=== PATIENT | male | born 1950 | race Caucasian/White ===

== ENCOUNTER → 2017-11-13 | Day surgery (SDC) | payer OTHER, BC ==
--- NOTE | 2017-11-12 14:59 | RAD REPORT ---
EXAM DESCRIPTION: Bernardino Galindo (2 Views)11/12/2017 2:53 pm CLINICAL HISTORY: Hypertension/preop COMPARISON: 2016 FINDINGS: The lungs appear clear of acute infiltrate. The heart is normal size IMPRESSION: No acute abnormalities displayed
--- NOTE | 2017-11-12 15:23 | EKG ---
Test Date: 2017-11-12 Test Time: 14:44:57 Warehouse Order Picker: LEV MEASUREMENT RESULTS: Intervals: Rate: 58 PA: 144 QRSD: 104 QT: 448 QTc: 439 [place]: P: 50 PA: 144 QRS: 47 T: 31 INTERPRETIVE STATEMENTS: Sinus bradycardia Abnormal ECG Compared to ECG 05/16/2013 10:56:46 Left ventricular hypertrophy no longer present Electronically Signed On 11-12-17 15:22:56 CDT by Angel Kennedy
[2017-11-12 16:08] LABS: Absolute Lymphocytes (CBC) 1.5 K/uL (0.7-4.9); Absolute Monocytes 0.5 K/uL (0.1-1.3); Absolute Neutrophil 3.2 K/uL (1.8-8.0); Basophils % 0.7 % (0-1.3); Eosinophils % 4.1 % (0-4.4); Hematocrit 42.7 % (39.6-49.0); Lymphocytes % 27.3 % (15.3-44.8); MCH 30.7 pg (27.0-35.0); MCV 88.4 fL (80-100); MPV 8.9 fL (7.6-11.3); Monocytes % 8.8 % (3.3-12.3); RBC Red Blood Cell Count 4.83 M/uL (4.33-5.43)
[2017-11-12 16:14] LABS: Protime INR 1.01
[2017-11-12 16:55] LABS: Potassium 3.8 mEq/L (3.6-5.0)
[~2017-11-13] MED LIST: FENTANYL CITR 100 MCG/2 ML ONE; HEPA 1000U/500MLS 1,000 UNIT/500 ML BAG IV ONE; LIDOCAINE 1% 20 ML MDV ONE; MIDAZOLAM HCL 2 MG/2 ML INJ ONE; NA CHLORIDE 0.9% 500 ML ONE
--- NOTE | 2017-11-14 01:03 | OP ---
Surgeon: Eric Joaquin MD Senior Examiner: Judy Lance. Procedure: The patient was brought in as an outpatient for an abdominal angiogram with runoff and bi lateral selective carotid angiography. Indication For The Procedure: CVD and PVD. Mr. Mansfield is a 67-year-old white male, very well known t o me. He has had a history of stents in his bilateral SFA, stents in his bilateral carotids. He com es in with claudication, abnormal arterial Doppler, and abnormal carotid Doppler. Description Of Procedure: He was prepped and draped in the routine sterile fashion, given 2 mg of Ve rsed for IV sedation. A 6-Kinyarwanda sheath was introduced in the right common femoral artery. Abdomina l angiogram with runoff was done using a pigtail, which showed a 40% stenosis in the right renal, dif fuse plaquing in the SFA bilaterally with patent stents bilaterally, diffuse distal disease below the knee, and small vessels. We will plan medical therapy for the peripheral vascular disease. He also had a right Claire catheter used to do the right carotid angiogram and left carotid angiogram. His ECAs were normal bilaterally. The common carotids were normal bilaterally. He had a 50-60% in-sten t restenosis in the right internal carotid artery stent and had about an 85-90% stenosis in the left internal carotid stent. We will get surgical consultation for possible restenting or endarterectomy in [place]. The patient tolerated the procedure well. Blood loss was 5 cc. I will have him at bedr est for 2 hours, then he can go home. Career Specialist: Eric Joaquin M.D. Conscious Sedation Time: Total conscious sedation was 45 minutes. GRACE/RAOUL Voice ID: [id number] Report ID: [id number]
== END | disposition home or self-care (01) ==
LOC: CCL 08:33
DX: I70.213 Atherosclerosis of native arteries of extremities with intermittent claudication, bilateral legs (principal); I65.23 Occlusion and stenosis of bilateral carotid arteries; T82.856A Stenosis of peripheral vascular stent, initial encounter; I70.1 Atherosclerosis of renal artery; I10 Essential (primary) hypertension; E78.6 Lipoprotein deficiency; F17.210 Nicotine dependence, cigarettes, uncomplicated; Z95.820 Peripheral vascular angioplasty status with implants and grafts; Z88.8 Allergy status to other drugs, medicaments and biological substances; Z82.49 Family history of ischemic heart disease and other diseases of the circulatory system
CPT/HCPCS: 36222 ×2; 36415; 71046; 75630; 80048; 85025; 85610; 85730; 93005; C1893; J2250; J3010; 36200